=== PATIENT | female | born 1990 | race Caucasian/White ===

== ENCOUNTER 2016-12-18 09:48 | Emergency (ER) | payer OTHER ==
[~2016-12-18] VITALS: Ht 160 cm; Wt 93.4 kg
[~2016-12-18 09:48] MED LIST: ALPR1TAB2 PO; CEPH250C16 PO; CITA40TA13 PO; GABA300C PO; HYDR-4446 PO; MIRT15TA PO; TRAM50TA94 PO
[2016-12-18 10:17] VITALS: BP 122/86
--- NOTE | 2016-12-18 10:19 | NUR ---
PT TO BED 3.
--- NOTE | 2016-12-18 10:25 | NUR ---
Patient being evaluated by physician at bedside.
--- NOTE | 2016-12-18 10:33 | NUR ---
URINE NITRATE POSITIVE, UPREG NEGATIVE. DR. CASAS AWARE. NEW ORDER FOR IV AND LABS. PT MADE AWARE OF POC.
[2016-12-18] MEDS ORDERED: ONDANSETRON 4 MG ODT PO ONE (10:35)
[2016-12-18] MEDS ORDERED: MORPHINE SULFATE 4 MG/ML SYR IM ONE (10:35)
[2016-12-18] MEDS ORDERED: NACL 0.9% 1,000 ML IV SCH (10:38)
[2016-12-18] MEDS ORDERED: cefTRIAXone 1,000 MG in DEXT 5% MINI-BAG PLUS 50 ML IV ONE (10:40)
[2016-12-18] MEDS ORDERED: MORPHINE SULFATE 4 MG/ML SYR IVP ONE (10:40)
[2016-12-18] MEDS ORDERED: ONDANSETRON 4 MG/2 ML VIAL IVP ONE (10:40)
--- NOTE | 2016-12-18 10:55 | NUR ---
ZOFRAN 4MG IVP GIVEN AT 1053 TO 1055.
[2016-12-18 10:58] LABS: BASOPHILS # (AUTO) 0.2 K/uL (0.00-0.22); BASOPHILS % (AUTO) 2.1 % (0.0-2.0); EOSINOPHILS # (AUTO) 0.2 K/uL (0-0.4); EOSINOPHILS % (AUTO) 1.9 % (0.0-4.0); HEMATOCRIT 40.7 % (36-48); HEMOGLOBIN 13.4 g/dL (12.0-16.0); LYMPHOCYTES # (AUTO) 2.6 K/uL (2.5-16.5); LYMPHOCYTES % (AUTO) 32.8 % (20.5-51.1); MEAN CORPUSCULAR HEMOGLOBIN 30 pg (27-31); MEAN CORPUSCULAR HGB CONC 33 g/dL (33-37); MEAN CORPUSCULAR VOLUME 91 fL (80-94); MONOCYTES # (AUTO) 0.5 K/uL (0.8-1.0); MONOCYTES % (AUTO) 6.8 % (1.7-9.3); NEUTROPHILS # (AUTO) 4.4 K/uL (1.8-7.7); NEUTROPHILS % (AUTO) 56.4 % (42.2-75.2); PLATELET COUNT (AUTO) 292 K/uL (140-450); RED BLOOD CELL COUNT(AUTO) 4.49 MIL/uL (4.20-5.40); RED CELL DISTRIBUTION WIDTH 13.2 % (11.6-13.7)
[2016-12-18] MEDS ORDERED: cefTRIAXone 1,000 MG VIAL ONE (10:58)
--- NOTE | 2016-12-18 10:59 | NUR ---
20G IV TO RFA VIA ULTRASOUND GUIDED IV. PT ZARIA WELL. MEDS GIVEN PER OCT.
--- NOTE | 2016-12-18 11:02 | NUR ---
PT TRANSPORTED TO CT VIA W/C BY [facility].
[2016-12-18 11:04] LABS: APPEARANCE,URINE SL CLOUDY (CLEAR); BILIRUBIN,URINE NEGATIVE (NEGATIVE); BLOOD, URINE 2+ (NEGATIVE); COLOR,URINE YELLOW (YELLOW); LEUKOCYTE ESTERASE ,URINE NEGATIVE (NEGATIVE); NITRITE, URINE POSITIVE (NEGATIVE); PROTEIN,URINE NEGATIVE (NEGATIVE); UGLUCOSE NEGATIVE (NEGATIVE); UROBILINOGEN,URINE 0.2 EU/dL (0.2 - 1)
--- NOTE | 2016-12-18 11:14 | NUR ---
PT TRANSPORTED FROM [place] VIA W/C BY [facility] TO [facility].
[2016-12-18 11:33] LABS: RBC,URINE 3-10 (FEW) /HPF (0-5)
[2016-12-18 11:34] LABS: BACTERIA,URINE 2+ /HPF (None Seen); SQUAMOUS EPITHELIAL CELL,UR 4-10 (MOD) /LPF (0-3 (FEW)); WBC,URINE 0-5 (RARE) /HPF (0-5)
[2016-12-18 12:22] LABS: ANION GAP 13.2 (8-16); CALCIUM 9.3 mg/dL (8.5-10.1); CARBON DIOXIDE 27.2 mmol/L (21-32); CREATININE 0.8 mg/dL (0.6-1.3); POTASSIUM 4.4 mmol/L (3.5-5.1)
[2016-12-18 12:28] LABS: ALBUMIN 3.9 g/dL (3.4-5.0); TOTAL BILIRUBIN 0.3 mg/dL (0.0-1.0); TOTAL PROTEIN, SERUM 8.1 g/dL (6.4-8.2)
--- NOTE | 2016-12-18 12:28 | NUR ---
PT AMB TO RESTROOM WITH EVEN AND STEADY GAIT. WATER GIVEN TO PT, PO OKAY PER .
--- NOTE | 2016-12-18 12:50 | NUR ---
ORANGE SURVEY GIVEN TO PT.
[2016-12-18 12:59] VITALS: BP 125/70
--- NOTE | 2016-12-18 13:00 | NUR ---
Patient discharged with v/s stable. Written and verbal after care instructions given and explained. Patient alert, oriented and verbalized understanding of instructions. Ambulatory with steady gait. All questions addressed prior to discharge. ID band removed. Patient advised to follow up with PMD. Rx of ZOFRAN, NORCO AND BATRIM given. Patient educated on indication of medication including possible reaction and side effects. Opportunity to ask questions provided and answered.
== END 2016-12-18 13:00 | disposition home or self-care (01) ==
LOC: MED 09:48
PROC: BW21ZZZ Computerized Tomography (CT Scan) of Abdomen and Pelvis (ICD-10-PCS; principal; 2016-12-18)
PROC: 3E033GC Introduction of Other Therapeutic Substance into Peripheral Vein, Percutaneous Approach (ICD-10-PCS; 2016-12-18)
DX: N20.1 Calculus of ureter (principal); N39.0 Urinary tract infection, site not specified; Z87.442 Personal history of urinary calculi; Z32.02 Encounter for pregnancy test, result negative
CPT/HCPCS: 36415; 74176; 80053; 81001; 81025; 83690; 85025; 87086; 87186; 96361; 96365; 96375; 99285; J0696; J2270; J2405; J7030; J7060

== ENCOUNTER 2017-01-07 11:32 | Emergency (ER) | payer OTHER ==
[~2017-01-07] VITALS: Ht 160 cm; Wt 103.0 kg
[2017-01-07 11:37] VITALS: BP 120/50
[2017-01-07] MEDS ORDERED: CITA40TA13 PO (11:41)
[2017-01-07] MEDS ORDERED: CLON0.5T PO (11:41)
--- NOTE | 2017-01-07 13:31 | NUR ---
Patient ambulated to bed 5. RN evaluating patient at bedside.
--- NOTE | 2017-01-07 13:35 | NUR ---
PATIENT PRESENTS TO ED WITH C/O BILAT FLANK PAIN X4 DAYS WITH DIZZINESS; SKIN IS PINK/WARM/DRY; AAOX4 WITH EVEN AND STEADY GAIT; LUNGS CLEAR BL; HR EVEN AND REGULAR; PT DENIES ANY FEVER, CP, SOB, OR COUGH AT THIS TIME; PATIENT STATES PAIN OF 8/10 AT THIS TIME; VSS; PATIENT POSITIONED FOR COMFORT; HOB ELEVATED; BEDRAILS UP X2; BED DOWN. ER MD MADE AWARE OF PT STATUS.
[2017-01-07] MEDS ORDERED: NACL 0.9% 1,000 ML IV ONE (13:40)
[2017-01-07] MEDS ORDERED: ONDANSETRON 4 MG/2 ML VIAL IVP ONE (14:05)
--- NOTE | 2017-01-07 14:29 | NUR ---
AAO PT BEING ASSESS BY DR MOE AT BEDSIDE
[2017-01-07] MEDS ORDERED: MORPHINE SULFATE 4 MG/ML SYR IVP ONE (14:35)
[2017-01-07 15:11] VITALS: BP 125/88
--- NOTE | 2017-01-07 15:11 | NUR ---
Patient discharged with v/s stable. Written and verbal after care instructions given and explained. Patient alert, oriented and verbalized understanding of instructions. Ambulatory with steady gait. All questions addressed prior to discharge. ID band removed. Patient advised to follow up with PMD. Rx of VALIUM, IMODIUM,FLOMAX given. Patient educated on indication of medication including possible reaction and side effects. Opportunity to ask questions provided and answered.
== END 2017-01-07 15:11 | disposition home or self-care (01) ==
LOC: MED 11:32
DX: R10.9 Unspecified abdominal pain (principal); R19.7 Diarrhea, unspecified; I10 Essential (primary) hypertension; Z88.1 Allergy status to other antibiotic agents; Z87.442 Personal history of urinary calculi
CPT/HCPCS: 81002; 81025; 96361; 96374; 96375; 99284; J2270; J2405; J7030

== ENCOUNTER 2017-05-27 01:45 | Emergency (ER) | payer OTHER ==
[~2017-05-27] VITALS: Ht 160 cm; Wt 93.9 kg
[~2017-05-27 01:45] MED LIST changes: -ALPR1TAB2 PO; +BUSPAR5 MG PO; +CATAPRES0.1 MG PO; +CELEXA40 MG PO; -CEPH250C16 PO; +CIPRO250 M2 PO; -CITA40TA13 PO; +FLOMAX0.4 MG PO; -GABA300C PO; -HYDR-4446 PO; +IMITREX100 MG PO; +KEFLEX250 MG PO; +KLONOPIN0.5 MG PO; +LOMOTIL 0.025 M1 TA1 PO; -MIRT15TA PO; +NEURONTIN300 MG PO; +NORCO 5/325 MG1 TAB PO; +REMERON15 MG PO; +TENORMIN100 MG PO; -TRAM50TA94 PO; +ULTRAM50 MG PO; +XANAX1 MG PO
[2017-05-27 01:59] VITALS: BP 130/80
[2017-05-27] MEDS ORDERED: INDERAL20 MG PO (02:04)
[2017-05-27] MEDS ORDERED: KEFLEX250 MG PO (02:05)
[2017-05-27] MEDS ORDERED: NORCO 325 MG-51 TAB PO (02:06)
--- NOTE | 2017-05-27 02:08 | NUR ---
TO ER BE 3
--- NOTE | 2017-05-27 02:16 | NUR ---
PATIENT PRESENTS TO THE ED C/O ABD AND LOWER BACK PAIN. PT STATES, "I HAVE A HISTORY OF KIDNEY STONES." PT REPORTS HEMATURIA, BUT DENIES FREQUENCY AND RETENTION. PT REPORTS 10/10 BURNING RIGHT ABD PAIN THAT RADIATES TO THE BACK. PT REPORTS VOMITING, DENIES NAUSEA/DIARRHEA X1 DAY. PT AAOX4, RR EVEN/UNLABORED, SKIN IS DRY, COOL AND INTACT. ER MD DR. LAGUNAS NOTIFIED. WILL CONTINUE TO MONITOR.
[2017-05-27] MEDS ORDERED: MORPHINE SULFATE 2 MG/ML SYR IVP ONE (02:55)
[2017-05-27] MEDS ORDERED: ONDANSETRON 4 MG/2 ML VIAL IVP ONE (02:55)
[2017-05-27] MEDS ORDERED: NACL 0.9% 500 ML IV ONE ×2 (02:55→04:45)
--- NOTE | 2017-05-27 05:22 | NUR ---
IV removed, catheter intact and site benign. Applied folded 4x4 gauze and tape to stop bleeding.
--- NOTE | 2017-05-27 05:23 | NUR ---
Patient discharged with v/s stable. Written and verbal after care instructions given and explained. Patient alert, oriented and verbalized understanding of instructions. Ambulatory with steady gait. All questions addressed prior to discharge. ID band removed. Patient advised to follow up with PMD. Rx of ULTRAM 50MG AND MACROBID 100MG given. Patient educated on indication of medication including possible reaction and side effects. Opportunity to ask questions provided and answered.
[2017-05-27 05:24] VITALS: BP 128/72
== END 2017-05-27 05:26 | disposition home or self-care (01) ==
LOC: MED 01:45
DX: N39.0 Urinary tract infection, site not specified (principal); I10 Essential (primary) hypertension; Z88.1 Allergy status to other antibiotic agents; Z87.442 Personal history of urinary calculi
CPT/HCPCS: 74176; 81002; 81025; 96374; 96375; 99284; J2270; J2405; J7030

== ENCOUNTER 2017-06-07 07:30 | Emergency (ER) | payer OTHER ==
[~2017-06-07] VITALS: Ht 160 cm; Wt 91.7 kg
[~2017-06-07 07:30] MED LIST changes: +ACET-2869 PO; -BUSPAR5 MG PO; -CATAPRES0.1 MG PO; -CELEXA40 MG PO; +CEPH250C16 PO; -CIPRO250 M2 PO; +CITA40TA13 PO; +CLON0.5T PO; -FLOMAX0.4 MG PO; -IMITREX100 MG PO; +IND20 PO; -KEFLEX250 MG PO; -KLONOPIN0.5 MG PO; -LOMOTIL 0.025 M1 TA1 PO; -NEURONTIN300 MG PO; -NORCO 5/325 MG1 TAB PO; -REMERON15 MG PO; -TENORMIN100 MG PO; -ULTRAM50 MG PO; -XANAX1 MG PO
--- NOTE | 2017-06-07 07:36 | NUR ---
PT AMBULATED TO BED 6. Addendum: 06/07/17 at 0751 by MEDSS PT AMBULATED TO BED 9.
[2017-06-07 07:42] VITALS: BP 118/72
--- NOTE | 2017-06-07 07:53 | NUR ---
26/F BIB FATHER C/O LOW BACK PAIN 03/01 RADIATING TO LOW ABDOMEN, N/V/D, URINE RETENTION X2D.SKIN IS PINK/WARM/DRY; AAOX4 WITH EVEN AND STEADY GAIT; LUNGS CLEAR BL; HR EVEN AND REGULAR;PATIENT POSITIONED FOR COMFORT; HOB ELEVATED; BEDRAILS UP X2; BED DOWN. ER MD MADE AWARE OF PT STATUS.
--- NOTE | 2017-06-07 07:54 | NUR ---
ER MD DR. WHITAKER EVALUATING PT AT BEDSIDE.
--- NOTE | 2017-06-07 07:55 | NUR ---
Suzie dutton in ED - 06/07/17 at 0756 by MED1 Patient being evaluated by DR WHITAKER at bedside..
[2017-06-07] MEDS ORDERED: ONDANSETRON 4 MG ODT PO ONE (08:05)
[2017-06-07 08:12] VITALS: BP 111/66
--- NOTE | 2017-06-07 08:12 | NUR ---
Patient discharged with v/s stable. Written and verbal after care instructions given and explained. Patient alert, oriented and verbalized understanding of instructions. Ambulatory with steady gait. All questions addressed prior to discharge. ID band removed. Patient advised to follow up with PMD. Rx of ZOFRAN ODT given. Patient educated on indication of medication including possible reaction and side effects. Opportunity to ask questions provided and answered.
== END 2017-06-07 08:12 | disposition home or self-care (01) ==
LOC: MED 07:30
DX: M54.5 Low back pain (principal); I10 Essential (primary) hypertension; F41.9 Anxiety disorder, unspecified; Z87.442 Personal history of urinary calculi; Z88.1 Allergy status to other antibiotic agents; Z88.8 Allergy status to other drugs, medicaments and biological substances; Z79.899 Other long term (current) drug therapy
CPT/HCPCS: 81002; 81025; 99283; S0119

== ENCOUNTER 2017-07-18 08:23 | Emergency (ER) | payer OTHER ==
[~2017-07-18] VITALS: Ht 162.6 cm; Wt 91.7 kg
[2017-07-18 08:30] VITALS: BP 125/85
--- NOTE | 2017-07-18 08:30 | NUR ---
Patient to bed 08.
--- NOTE | 2017-07-18 09:00 | NUR ---
ASSUMED PATIENTNCARE, CONCUR WITH TRIAGE ASSESSMENT. BEDDED IN ER 8, ORIENTED TO PLAN OF CARE.
[2017-07-18] MEDS ORDERED: LORazepam 2 MG/ML VIAL IM ONE (09:10)
[2017-07-18] MEDS ORDERED: LORazepam 1 MG TAB PO ONE (09:45)
[2017-07-18 09:54] VITALS: BP 119/72
--- NOTE | 2017-07-18 09:55 | NUR ---
DISPO AND MEDICAL DECISION MAKING, DC HOME WITH INSTRUCTIONS AND PRESCRIPTION. PATIENT ENDORSING RELIEF FROM SYMPTOMS, VSWNL, NO DISTRESS. DC HOME AMBULATORY ACCOMPANIED BY SIGNIFICANT OTHER.
== END 2017-07-18 09:54 | disposition home or self-care (01) ==
LOC: MED 08:23
DX: F41.9 Anxiety disorder, unspecified (principal); R00.2 Palpitations; I10 Essential (primary) hypertension; Z79.899 Other long term (current) drug therapy; Z88.1 Allergy status to other antibiotic agents; Z88.8 Allergy status to other drugs, medicaments and biological substances
CPT/HCPCS: 81002; 81025; 99284

== ENCOUNTER 2017-09-14 08:41 | Emergency (ER) | payer OTHER ==
[~2017-09-14] VITALS: Ht 160 cm; Wt 91.2 kg
[2017-09-14 08:44] VITALS: BP 146/76
--- NOTE | 2017-09-14 08:49 | NUR ---
PT AMBULATED TO BED 12.
--- NOTE | 2017-09-14 08:50 | NUR ---
27F BIB BOYFRIEND C/O MIGRAINE HEADACHE AT R FOREHEAD AND N/V/D X 3 DAYS.HX: MIGRAINES RX: IMITREX. SKIN IS PINK/WARM/DRY; AAOX4 WITH EVEN AND STEADY GAIT; LUNGS CLEAR BL; HR EVEN AND REGULAR; PT DENIES ANY FEVER, CP, SOB, OR COUGH AT THIS TIME; PATIENT STATES PAIN OF 10/10 AT THIS TIME; VSS; PATIENT POSITIONED FOR COMFORT; HOB ELEVATED; BEDRAILS UP X2; BED DOWN. ER MD MADE AWARE OF PT STATUS.
--- NOTE | 2017-09-14 09:08 | NUR ---
Patient being evaluated by DR FULLER at bedside.
[2017-09-14] MEDS ORDERED: NACL 0.9% 1,000 ML IV ONE (09:14)
[2017-09-14] MEDS ORDERED: ONDANSETRON 4 MG/2 ML VIAL IVP ONE (09:15)
[2017-09-14] MEDS ORDERED: diphenhydrAMINE 50 MG/ML VIAL IVP ONE (09:15)
[2017-09-14] MEDS ORDERED: MORPHINE SULFATE 4 MG/ML SYR IVP ONE (09:15)
[2017-09-14] MEDS ORDERED: MORPHINE SULFATE 4 MG/ML SYR ONE (09:30)
[2017-09-14] MEDS ORDERED: ONDANSETRON 4 MG/2 ML VIAL ONE (09:31)
[2017-09-14] MEDS ORDERED: diphenhydrAMINE 50 MG/ML VIAL ONE (09:32)
[2017-09-14 09:59] LABS: APPEARANCE,URINE CLEAR (CLEAR); BILIRUBIN,URINE NEGATIVE (NEGATIVE); BLOOD, URINE 1+ (NEGATIVE); COLOR,URINE YELLOW (YELLOW); LEUKOCYTE ESTERASE ,URINE TRACE (NEGATIVE); NITRITE, URINE NEGATIVE (NEGATIVE); UGLUCOSE NEGATIVE (NEGATIVE)
[2017-09-14 10:27] LABS: POTASSIUM 4.3 mmol/L (3.5-5.1)
[2017-09-14 10:35] LABS: RBC,URINE 0-5 (RARE) /HPF (0-5); WBC,URINE 0-5 (RARE) /HPF (0-5)
[2017-09-14 10:39] LABS: ANION GAP 15.9 (8-16); CARBON DIOXIDE 27.4 mmol/L (21-32); CREATININE 0.8 mg/dL (0.6-1.3)
[2017-09-14] MEDS ORDERED: DEXAMETHASONE 10 MG/ML VIAL PO ONE (10:45)
[2017-09-14] MEDS ORDERED: DEXAMETHASONE 10 MG/ML VIAL ONE (10:48)
--- NOTE | 2017-09-14 11:04 | NUR ---
Patient discharged with v/s stable. Written and verbal after care instructions given and explained. Patient alert, oriented and verbalized understanding of instructions. Ambulatory with steady gait. All questions addressed prior to discharge. ID band removed. Patient advised to follow up with PMD. Rx of ZOFRAN, NORCO & KEFLEX given. Patient educated on indication of medication including possible reaction and side effects. Opportunity to ask questions provided and answered.
[2017-09-14 11:05] VITALS: BP 111/85
== END 2017-09-14 11:04 | disposition home or self-care (01) ==
LOC: MED 08:41
DX: N39.0 Urinary tract infection, site not specified (principal); R51 Headache; I10 Essential (primary) hypertension; Z87.442 Personal history of urinary calculi; Z88.1 Allergy status to other antibiotic agents; Z88.8 Allergy status to other drugs, medicaments and biological substances; Z79.899 Other long term (current) drug therapy
CPT/HCPCS: 36415; 80048; 81001; 81025; 96361; 96374; 96375; 99284; J1100; J1200; J2270; J2405

== ENCOUNTER 2018-06-30 16:17 | Emergency (ER) | payer OTHER ==
[~2018-06-30] VITALS: Ht 160 cm; Wt 87.1 kg
[~2018-06-30 16:17] MED LIST changes: -ACET-2869 PO; +HYDR-5122 PO; -IND20 PO; +PROP20TA29 PO
[2018-06-30 16:28] VITALS: BP 125/72
--- NOTE | 2018-06-30 16:33 | NUR ---
PT TRIAGED AND SENT TO ER LOBBY. EDMD AWARE OF PT STATUS
--- NOTE | 2018-06-30 17:43 | NUR ---
PT REASSESSED AND STATES THAT SHE IS HAVING AN ANXIETY ATTACK, VSS, EDMD AWARE. PT SENT TO LOBBY.
[2018-06-30 18:18] LABS: ANION GAP 14.2 (8-16); CARBON DIOXIDE 25.5 mmol/L (21-32); CREATININE 0.9 mg/dL (0.6-1.3); POTASSIUM 3.7 mmol/L (3.5-5.1)
[2018-06-30 18:28] LABS: ALBUMIN 4.6 g/dL (3.4-5.0); TOTAL BILIRUBIN 0.3 mg/dL (0.0-1.0)
[2018-06-30 18:34] LABS: APPEARANCE,URINE CLEAR (CLEAR); COLOR,URINE YELLOW (YELLOW)
[2018-06-30 18:35] LABS: BILIRUBIN,URINE NEGATIVE (NEGATIVE); BLOOD, URINE 2+ (NEGATIVE); LEUKOCYTE ESTERASE ,URINE NEGATIVE (NEGATIVE); NITRITE, URINE NEGATIVE (NEGATIVE); UGLUCOSE NEGATIVE (NEGATIVE)
[2018-06-30 18:40] LABS: BASOPHILS % (AUTO) 0.3 % (0.0-2.0); EOSINOPHILS % (AUTO) 0.4 % (0.0-4.0); HEMATOCRIT 44.9 % (36-48); HEMOGLOBIN 14.9 g/dL (12.0-16.0); LYMPHOCYTES % (AUTO) 30.4 % (20.5-51.1); MEAN CORPUSCULAR HEMOGLOBIN 33 pg (27-31); MEAN CORPUSCULAR HGB CONC 33 g/dL (33-37); MONOCYTES # (AUTO) 0.7 K/uL (0.8-1.0); MONOCYTES % (AUTO) 6.6 % (1.7-9.3); NEUTROPHILS # (AUTO) 6.2 K/uL (1.8-7.7); NEUTROPHILS % (AUTO) 62.3 % (42.2-75.2); PLATELET COUNT (AUTO) 264 K/uL (140-450); RED BLOOD CELL COUNT(AUTO) 4.58 MIL/uL (4.20-5.40); RED CELL DISTRIBUTION WIDTH 13.1 % (11.6-13.7)
[2018-06-30 18:59] LABS: RBC,URINE 0-5 (RARE) /HPF (0-5)
[2018-06-30 19:00] LABS: WBC,URINE 0-5 (RARE) /HPF (0-5)
--- NOTE | 2018-06-30 19:35 | NUR ---
Reassessed. No changes or new complaints noted.
--- NOTE | 2018-06-30 19:58 | NUR ---
PT AMBULATED TO BED 8
--- NOTE | 2018-06-30 19:58 | NUR ---
PT PRESENTS TO ED WITH N/V, LOWER RIGHT BACK PAIN AND SUPRAPUBIC TENDERNESS X1 WK. PT STATES UNABLE TO KEEP FOOD/FLUID DOWN X3 DAYS. PAIN WITH URINATION. PT STATES ANXIETY D/T STRESS AT HOME WITH FAMILY. PT STATES DX OF KIDNEY STONES, DX'D AT [facility]. PT TACHY AT 103. A&OX4. POSITIONED IN BED FOR COMFORT. ER AWARE. CONTINUE TO MONITOR.
[2018-06-30] MEDS ORDERED: LORazepam 2 MG/ML VIAL IM ONE (20:35)
[2018-06-30] MEDS ORDERED: ONDANSETRON 4 MG ODT PO ONE (20:35)
[2018-06-30] MEDS ORDERED: HYDROcodone/APAP 5/325 MG 1 TAB TAB PO ONE (20:35)
--- NOTE | 2018-06-30 21:23 | NUR ---
Patient discharged with v/s stable. Written and verbal after care instructions given and explained. Patient alert, oriented and verbalized understanding of instructions. Ambulatory with steady gait. All questions addressed prior to discharge. ID band removed. Patient advised to follow up with PMD. Rx of ZOFRAN 4 MG, NORCO 5/325 MG given. Patient educated on indication of medication including possible reaction and side effects. Opportunity to ask questions provided and answered.
[2018-06-30 21:24] VITALS: BP 148/90
== END 2018-06-30 21:23 | disposition home or self-care (01) ==
LOC: MED 16:17
DX: N20.0 Calculus of kidney (principal); F41.9 Anxiety disorder, unspecified; I10 Essential (primary) hypertension; Z88.1 Allergy status to other antibiotic agents; Z88.8 Allergy status to other drugs, medicaments and biological substances; Z87.442 Personal history of urinary calculi; Z79.899 Other long term (current) drug therapy
CPT/HCPCS: 36415; 80053; 81001; 81025; 83690; 85025; 96372; 99284; J2060; Q0162

== ENCOUNTER 2018-09-20 17:31 | Emergency (ER) | payer OTHER ==
[~2018-09-20] VITALS: Ht 157.5 cm; Wt 86.2 kg
[2018-09-20 17:42] VITALS: BP 134/76
--- NOTE | 2018-09-20 17:48 | NUR ---
28/F c/o persistant right frontal lobe pain x 3 days with nausea/emesis---denies recent injury hx---migraine, anxiety rx---imitrex, norco, xanax
[2018-09-20] MEDS ORDERED: NACL 0.9% 1,000 ML IV ONE (18:15)
[2018-09-20] MEDS ORDERED: MORPHINE SULFATE 4 MG/ML SYR IVP ONE (18:15)
[2018-09-20] MEDS ORDERED: METOCLOPRAMIDE 10 MG/2 ML INJ VIAL IVP ONE (18:15)
[2018-09-20 18:54] VITALS: BP 135/83
--- NOTE | 2018-09-20 18:54 | NUR ---
Patient discharged with v/s stable. Written and verbal after care instructions given and explained. Patient alert, oriented and verbalized understanding of instructions. Ambulatory with steady gait. All questions addressed prior to discharge. ID band removed. Patient advised to follow up with PMD. Rx of Zofran given. Patient educated on indication of medication including possible reaction and side effects. Opportunity to ask questions provided and answered. Addendum: 09/20/18 at 1856 by PARVEEN Pt wants to leave d/t her daughter being admitted at [place] for seizure. Dr Kristie suarez.
== END 2018-09-20 18:54 | disposition home or self-care (01) ==
LOC: MED 17:31
DX: G43.909 Migraine, unspecified, not intractable, without status migrainosus (principal); I10 Essential (primary) hypertension; F41.9 Anxiety disorder, unspecified; Z87.442 Personal history of urinary calculi; Z79.899 Other long term (current) drug therapy; Z88.1 Allergy status to other antibiotic agents; Z88.8 Allergy status to other drugs, medicaments and biological substances
CPT/HCPCS: 81002; 81025; 96374; 96375; 99283; J2270; J2765; J7030

== ENCOUNTER 2018-12-13 05:40 | Emergency (ER) | payer OTHER ==
[~2018-12-13] VITALS: Ht 160 cm; Wt 83.5 kg
[2018-12-13 05:45] VITALS: BP 124/78
--- NOTE | 2018-12-13 05:45 | NUR ---
TO BED #07 AMBULATORY, REPORT GIVEN TO KASIE PADGETT
--- NOTE | 2018-12-13 05:48 | NUR ---
PT AXOX3. PT STATES ALLERGY TO TORADOL AND CIPRO- REACTION: HIVES. CURRENTLY C/O MIGRAINE PAIN 10/ SURROUNDING RIGHT ORBIT WITH SENSITIVITY TO LIGHT. PT STATES SHE TAKES TRAMADOL, IMITREX, NORCO AND PHENOBARBITAL FOR MIGRAINES PRESCRIBED BY HER PCP. WILL CONTINUE TO MONITOR CLOSELY.
[2018-12-13] MEDS ORDERED: diphenhydrAMINE 50 MG/ML VIAL IM ONE (06:00)
[2018-12-13] MEDS ORDERED: MORPHINE SULFATE 2 MG/ML SYR IM ONE (06:00)
[2018-12-13] MEDS ORDERED: PROCHLORPERAZINE 10 MG/2 ML VIAL IM ONE (06:00)
[2018-12-13] MEDS ORDERED: NACL 0.9% 1,000 ML IV ONE (06:20)
[2018-12-13] MEDS ORDERED: MORPHINE SULFATE 2 MG/ML SYR IVP ONE (06:25)
[2018-12-13] MEDS ORDERED: PROCHLORPERAZINE 10 MG/2 ML VIAL IVP ONE (06:25)
[2018-12-13] MEDS ORDERED: diphenhydrAMINE 50 MG/ML VIAL IVP ONE (06:25)
[2018-12-13] MEDS ORDERED: SULFAMETH/TRIMETH DS 800/160MG 1 TAB PO ONE (06:30)
--- NOTE | 2018-12-13 06:48 | NUR ---
D/C PATIENT AXOX4 AND AMBULATORY WITH SIGNIFICANT OTHER AT BEDSIDE. PATIENT STATES PAIN 2/10 MIGRAINE. HOME CARE AND DISCHARGE ORDERS REVIEWED WITH THE PATIENT, STATES UNDERSTANDING OF ALL ORDERS AND MEDICATIONS ORDERED. NO QUESTIONS AT THIS TIME.
== END 2018-12-13 06:48 | disposition home or self-care (01) ==
LOC: MED 05:40
DX: G43.909 Migraine, unspecified, not intractable, without status migrainosus (principal); N39.0 Urinary tract infection, site not specified; I10 Essential (primary) hypertension; Z88.1 Allergy status to other antibiotic agents; Z88.6 Allergy status to analgesic agent; Z79.2 Long term (current) use of antibiotics; Z79.891 Long term (current) use of opiate analgesic; Z79.899 Other long term (current) drug therapy
CPT/HCPCS: 81002; 96374; 96375; 99283; J0780; J1200; J2270; J7030

== ENCOUNTER 2020-04-12 10:42 | Emergency (ER) | payer OTHER ==
[~2020-04-12] VITALS: Ht 160 cm; Wt 96.6 kg
[2020-04-12 10:48] VITALS: BP 125/70
[2020-04-12 11:41] LABS: BASOPHILS # (AUTO) 0.1 K/uL (0.00-0.22); BASOPHILS % (AUTO) 0.6 % (0.0-2.0); EOSINOPHILS % (AUTO) 0.5 % (0.0-4.0); HEMATOCRIT 41.6 % (36-48); LYMPHOCYTES # (AUTO) 2.5 K/uL (2.5-16.5); LYMPHOCYTES % (AUTO) 26.3 % (20.5-51.1); MEAN CORPUSCULAR HEMOGLOBIN 33 pg (27-31); MEAN CORPUSCULAR HGB CONC 34 g/dL (33-37); MEAN CORPUSCULAR VOLUME 97.2 fL (80-94); MONOCYTES # (AUTO) 0.7 K/uL (0.8-1.0); MONOCYTES % (AUTO) 6.8 % (1.7-9.3); NEUTROPHILS # (AUTO) 6.3 K/uL (1.8-7.7); NEUTROPHILS % (AUTO) 65.8 % (42.2-75.2); PLATELET COUNT (AUTO) 336 K/uL (140-450); RED BLOOD CELL COUNT(AUTO) 4.28 MIL/uL (4.20-5.40); RED CELL DISTRIBUTION WIDTH 13.7 % (11.6-13.7); WHITE BLOOD COUNT (AUTO) 9.5 K/uL (4.8-10.8)
[2020-04-12 12:03] LABS: ALBUMIN 3.7 g/dL (3.4-5.0); ANION GAP 16.9 (8-16); CREATININE 0.6 mg/dL (0.6-1.3); POTASSIUM 3.9 mmol/L (3.5-5.1); TOTAL BILIRUBIN 0.4 mg/dL (0.0-1.0)
[2020-04-12 13:56] VITALS: BP 125/70
== END 2020-04-12 13:57 | disposition home or self-care (01) ==
LOC: MED 10:42
DX: O20.0 Threatened abortion (principal); I10 Essential (primary) hypertension; F41.9 Anxiety disorder, unspecified; N20.0 Calculus of kidney; Z3A.09 9 weeks gestation of pregnancy
CPT/HCPCS: 36415; 76801; 80053; 81002; 81025; 84702; 85025; 86886; 86900; 86901; 99284; Q0092

== ENCOUNTER 2021-03-06 10:54 | Emergency (ER) | payer OTHER ==
[~2021-03-06] VITALS: Ht 154.9 cm; Wt 106.6 kg
[2021-03-06 11:13] VITALS: BP 165/105
[2021-03-06] MEDS ORDERED: LORazepam 2 MG/ML VIAL IVP ONE (11:15)
--- NOTE | 2021-03-06 11:15 | NUR ---
30 YEAR OLD FEMALE BIBA FROM HOME FOR COMPLAINS OF CHEST PALPITATIONS. PT STATES SHE HAS BEEN HAVING ANXIETY WITH PALPITATIONS X 3 DAYS. PT STATES SHE ALSO HAS NAUSEA, VOMITTING PRESENT. PT AOX4, BREATHING EVEN AND UNLABORED, SKIN WARM AND DRY. BED IN LOWEST POSITION, LOCKED, BED RAIL UPX1. PMH - ANXIETY, C SECTION ALLERGIES - CIPRO
--- NOTE | 2021-03-06 12:05 | NUR ---
Several attempts to establish IV unsuccessful. Dr. Bello made aware. TU Puga at bedside to attempt US guided IV insertion. Pt made aware and verbally agreed.
--- NOTE | 2021-03-06 12:11 | NUR ---
UNABLE TO OBTAIN IV ACCESS AFTER MULTIPLE ATTEMPTS BY NURSING STAFF, TU MARTINEZ MADE AWARE AND IS AT BEDSIDE FOR IV ULTRASOUND
--- NOTE | 2021-03-06 12:19 | NUR ---
REPORT GIVEN TO ALAINA AT THIS TIME FOR PRIMARY NURSE TO TAKE LUNCH
[2021-03-06] MEDS: ONDANSETRON 4 MG/2 ML VIAL IVP ONE (12:40)
[2021-03-06] MEDS: NACL 0.9% 500 ML IV ONE (12:40)
[2021-03-06] MEDS: LORazepam 2 MG/ML VIAL IVP ONE (12:42)
--- NOTE | 2021-03-06 12:48 | NUR ---
PT COMPLAINS OF FEELING LIKE "MY HEART IS RACING AND I FEEL LIKE SOMEONE IS SITTING ON MY CHEST." DR. EDWARDS MADE AWARE, NO NEW ORDERS RECEIVED AT THIS TIME.
--- NOTE | 2021-03-06 12:49 | NUR ---
Pt report given to Mando. Transfer of care at this time.
--- NOTE | 2021-03-06 12:56 | NUR ---
PT STATES SHE WANTS MORE ATIVAN, PROMISE MADE AWARE AND IS TALKING TO PT AT THIS TIME
[2021-03-06 12:59] LABS: BASOPHILS % (AUTO) 0.1 % (0.0-2.0); HEMATOCRIT 42.6 % (36-48); HEMOGLOBIN 14.3 g/dL (12.0-16.0); LYMPHOCYTES # (AUTO) 2.1 K/uL (2.5-16.5); LYMPHOCYTES % (AUTO) 22.7 % (20.5-51.1); MEAN CORPUSCULAR HEMOGLOBIN 31 pg (27-31); MEAN CORPUSCULAR HGB CONC 34 g/dL (33-37); MEAN CORPUSCULAR VOLUME 92.4 fL (80-94); MONOCYTES # (AUTO) 0.4 K/uL (0.8-1.0); MONOCYTES % (AUTO) 4.9 % (1.7-9.3); NEUTROPHILS # (AUTO) 6.6 K/uL (1.8-7.7); NEUTROPHILS % (AUTO) 72.3 % (42.2-75.2); PLATELET COUNT (AUTO) 318 K/uL (140-450); RED BLOOD CELL COUNT(AUTO) 4.61 MIL/uL (4.20-5.40); RED CELL DISTRIBUTION WIDTH 14.4 % (11.6-13.7); WHITE BLOOD COUNT (AUTO) 9.1 K/uL (4.8-10.8)
--- NOTE | 2021-03-06 13:00 | NUR ---
IV removed, catheter intact and site benign. Applied folded 4x4 gauze and tape to stop bleeding.
[2021-03-06 13:01] VITALS: BP 165/105
--- NOTE | 2021-03-06 13:02 | NUR ---
PT ELOPED FROM FACILITY AT THIS TIME. ERMD MADE AWARE
[2021-03-06 13:10] LABS: ANION GAP 15.4 (8-16); CARBON DIOXIDE 26.7 mmol/L (21-32); CREATININE 0.8 mg/dL (0.6-1.3); POTASSIUM 4.1 mmol/L (3.5-5.1)
== END 2021-03-06 13:02 | disposition left against medical advice (07) ==
LOC: MED 10:54
DX: F41.9 Anxiety disorder, unspecified (principal); I10 Essential (primary) hypertension; Z87.442 Personal history of urinary calculi; Z88.1 Allergy status to other antibiotic agents; Z88.8 Allergy status to other drugs, medicaments and biological substances; Z79.899 Other long term (current) drug therapy; Z76.5 Malingerer [conscious simulation]
CPT/HCPCS: 36415; 36569; 80048; 81002; 81025; 83735; 85025; 93005; 96374; 96375; 99285; J2060; J2405; J7030; 36568

== ENCOUNTER 2021-03-12 15:14 | Emergency (ER) | payer OTHER ==
[~2021-03-12] VITALS: Ht 157.5 cm; Wt 97.5 kg
[2021-03-12 15:21] VITALS: BP 132/99
--- NOTE | 2021-03-12 15:52 | NUR ---
TU MORALEZ EVALUATING PT IN TRIAGE ROOM
[2021-03-12] MEDS ORDERED: LORazepam 2 MG/ML VIAL IM ONE (16:00)
[2021-03-12] MEDS ORDERED: CLON0.5T PO (16:03)
[2021-03-12 16:19] VITALS: BP_SYST 132
--- NOTE | 2021-03-12 16:19 | NUR ---
Patient discharged with v/s stable. Written and verbal after care instructions given and explained. Patient alert, oriented and verbalized understanding of instructions. Ambulatory with steady gait. All questions addressed prior to discharge. ID band removed. Patient advised to follow up with PMD. Rx of Klonopin given. Patient educated on indication of medication including possible reaction and side effects. Opportunity to ask questions provided and answered.
== END 2021-03-12 16:19 | disposition home or self-care (01) ==
LOC: MED 15:14
DX: F41.9 Anxiety disorder, unspecified (principal); R00.2 Palpitations; I10 Essential (primary) hypertension; Z79.899 Other long term (current) drug therapy; Z88.1 Allergy status to other antibiotic agents; Z88.8 Allergy status to other drugs, medicaments and biological substances; Z87.442 Personal history of urinary calculi
CPT/HCPCS: 93005; 96372; 99283; J2060

== ENCOUNTER 2021-06-17 17:05 | Emergency (ER) | payer OTHER ==
[~2021-06-17] VITALS: Ht 160 cm; Wt 88.5 kg
[2021-06-17 17:26] VITALS: BP 140/98
--- NOTE | 2021-06-17 17:39 | NUR ---
TO ER BED 8
--- NOTE | 2021-06-17 17:56 | NUR ---
PT HAS REQUESTED NO NARCOTICS GIVEN OR PRESCRIBED TO HER DUE TO HER LIVING SITUATION
--- NOTE | 2021-06-17 17:56 | NUR ---
30 Y FEMALE WITH C/O OF RASH ON HER FACE, CHEST, AND BILATERAL ARMS XTODAY. PT ALSO STATED SHE HAS SWELLING ON HER EYELIDS AND SOB. PT WAS SEEN AT [facility] YESTERDAY AND WAS DX WITH BRONCHITIS. PT WAS GIVEN PREDNISONE AND INHALER FOR HOME USE, BUT STATED "AFTER THE STEROIDS SHE STARTED TO DEVELOP THE RASH AND SOB." BREATH SOUNDS CLEAR, BUT SHALLOW UPON ASSESSMENT. REDNESS NOTED OVER PT FACE, UPPER CHEST, AND BILATERAL ARMS. SKIN IS DRY AND INTACT, PT A&OX4, AND AMBULATORY PMH: BRONCHITIS ALLERGIES: SEE LIST
--- NOTE | 2021-06-17 18:32 | NUR ---
DR. MOE BEDSIDE EVALUATING PT
[2021-06-17] MEDS ORDERED: BEN50 PO (18:39)
[2021-06-17] MEDS ORDERED: diphenhydrAMINE 50 MG CAP PO ONE (18:55)
[2021-06-17 19:10] VITALS: BP 144/99
--- NOTE | 2021-06-17 19:11 | NUR ---
Patient discharged with v/s stable. Written and verbal after care instructions given and explained. Patient alert, oriented and verbalized understanding of instructions. Ambulatory with steady gait. All questions addressed prior to discharge. ID band removed. Patient advised to follow up with PMD. Rx of BENADRYL given. Patient educated on indication of medication including possible reaction and side effects. Opportunity to ask questions provided and answered.
== END 2021-06-17 19:11 | disposition home or self-care (01) ==
LOC: MED 17:05
DX: T78.40XA Allergy, unspecified, initial encounter (principal); R21 Rash and other nonspecific skin eruption; Z88.1 Allergy status to other antibiotic agents; Z88.8 Allergy status to other drugs, medicaments and biological substances; Z79.899 Other long term (current) drug therapy; Z98.890 Other specified postprocedural states; X58.XXXA Exposure to other specified factors, initial encounter; Y93.89 Activity, other specified; Y92.89 Other specified places as the place of occurrence of the external cause; Y99.8 Other external cause status
CPT/HCPCS: 99282; Q0163

== ENCOUNTER 2021-06-26 12:16 | Emergency (ER) | payer OTHER ==
[~2021-06-26] VITALS: Ht 160 cm; Wt 88.5 kg
[~2021-06-26 12:16] MED LIST changes: +BEN50 PO
[2021-06-26 12:28] VITALS: BP 151/125
--- NOTE | 2021-06-26 12:44 | NUR ---
PT AMB TO BED 2.
--- NOTE | 2021-06-26 13:00 | NUR ---
30 Y/O FEMALE C/O LOWER BACK PAIN 8/10 AND BILATERAL FLANK PAIN, HEADACHE 5/10 X 3 DAYS AND RIGHT EYE BLURRY X1DAY. STATES +DYSURIA, DENIES DISCHARGE, DENIES ITCHING. PT STATES SHE STOPPED TKAING ATENOLOL FOR HTN X2 MONTHS. DENIES FEVER/CHILLS. STATES +N/-V. BLOOD SUGAR 103 AT THIS TIME. VA: RIGHT EYE 20/100, LEFT EYE 20/50, 20/40 PMH: HTN, DM, ASTHMA ALLERGIES: CIPRO, TORADOL, AND NSAIDS.
--- NOTE | 2021-06-26 13:22 | NUR ---
DR. KEANE AT PT BEDSIDE FOR FURTHER EVALUATION.
[2021-06-26] MEDS ORDERED: NAPR-1704 PO (13:36)
[2021-06-26] MEDS ORDERED: SULF-59 PO (13:36)
[2021-06-26] MEDS ORDERED: IBUPROFEN 400 MG TAB PO ONE (13:40)
[2021-06-26] MEDS ORDERED: IBUPROFEN 400 MG TAB ONE (13:41)
[2021-06-26] MEDS ORDERED: ATEN25TA7 PO (13:46)
[2021-06-26] MEDS ORDERED: IMI25 PO (13:46)
[2021-06-26 13:57] VITALS: BP 139/92
--- NOTE | 2021-06-26 13:58 | NUR ---
Patient discharged with v/s stable. Written and verbal after care instructions given and explained. Patient alert, oriented and verbalized understanding of instructions. Ambulatory with steady gait. All questions addressed prior to discharge. ID band removed. Patient advised to follow up with PMD. Rx of ATENOLO, IMITREX, NAPROXEN, AND BACTRIM given. Patient educated on indication of medication including possible reaction and side effects. Opportunity to ask questions provided and answered.
[2021-06-26 15:30] LABS: APPEARANCE,URINE CLEAR (CLEAR); BILIRUBIN,URINE NEGATIVE (NEGATIVE); BLOOD, URINE TRACE-I (NEGATIVE); COLOR,URINE YELLOW (YELLOW); LEUKOCYTE ESTERASE ,URINE NEGATIVE (NEGATIVE); NITRITE, URINE NEGATIVE (NEGATIVE); UGLUCOSE NEGATIVE (NEGATIVE)
[2021-06-26 15:40] LABS: RBC,URINE 0-5 /HPF (0-5); WBC,URINE 0-5 /HPF (0-5)
== END 2021-06-26 13:57 | disposition home or self-care (01) ==
LOC: MED 12:16
DX: N39.0 Urinary tract infection, site not specified (principal); N12 Tubulo-interstitial nephritis, not specified as acute or chronic; I10 Essential (primary) hypertension; G43.909 Migraine, unspecified, not intractable, without status migrainosus; J45.909 Unspecified asthma, uncomplicated; Z88.1 Allergy status to other antibiotic agents; Z88.8 Allergy status to other drugs, medicaments and biological substances; Z79.899 Other long term (current) drug therapy
CPT/HCPCS: 81001; 81002; 81025; 87086; 99283

== ENCOUNTER 2021-08-30 09:27 | Emergency (ER) | payer OTHER ==
[~2021-08-30] VITALS: Ht 160 cm; Wt 83.9 kg
[~2021-08-30 09:27] MED LIST changes: +ATEN25TA7 PO; +IMI25 PO; +NAPR-1704 PO; +SULF-59 PO
[2021-08-30 09:45] VITALS: BP 150/85
--- NOTE | 2021-08-30 09:45 | NUR ---
COVID PCR SWAB DONE., TENT 2.
--- NOTE | 2021-08-30 09:46 | NUR ---
BIB SELF C/O COUGH X 2 WEEKS , 6/10 CHEST TIGHTNESS, SORE THROAT,DIFFICULTY BREATHING, STUFFY NOSE X 3 DAY. PT TOOK IBUPROFEN FOR BODY ACHE AT 7 AM. PMH: ASTHMA
[2021-08-30] MEDS ORDERED: ALBU0.0912 IH (11:49)
[2021-08-30] MEDS ORDERED: AZIT250T3 PO (11:49)
[2021-08-30] MEDS ORDERED: PRED20TA5 PO ×2 (11:49→12:46)
[2021-08-30 12:20] VITALS: BP 136/78
--- NOTE | 2021-08-30 12:21 | NUR ---
Patient discharged with v/s stable. Written and verbal after care instructions given COUGH and explained. Patient alert, oriented and verbalized understanding of instructions. Ambulatory with steady gait. All questions addressed prior to discharge. ID band removed. Patient advised to follow up with PMD. Rx of ALBUTEROL, AZITHROMYCIN, AND PREDNISONE given. Patient educated on indication of medication including possible reaction and side effects. Opportunity to ask questions provided and answered.
== END 2021-08-30 12:20 | disposition home or self-care (01) ==
LOC: MED 09:27
DX: J40 Bronchitis, not specified as acute or chronic (principal); J45.909 Unspecified asthma, uncomplicated; E11.9 Type 2 diabetes mellitus without complications; I10 Essential (primary) hypertension; Z88.1 Allergy status to other antibiotic agents; Z88.6 Allergy status to analgesic agent; Z20.822 Contact with and (suspected) exposure to COVID-19
CPT/HCPCS: 71045; 99284; Q0092; U0003

== ENCOUNTER 2021-09-26 18:44 | Emergency (ER) | payer SELFPAY ==
[~2021-09-26] VITALS: Ht 160 cm; Wt 83.9 kg
[~2021-09-26 18:44] MED LIST changes: +ALBU0.0912 IH; +AZIT250T3 PO; +PRED20TA5 PO
[2021-09-26 18:48] VITALS: BP 126/79
--- NOTE | 2021-09-26 19:08 | NUR ---
31/F BIB SELF WITH C/O DYSURIA AND HEMATURIA X 1 WEEK, BILATERAL FLANK PAIN X 2 DAYS. PT ALSO COMPLAINS OF CHILLS, NAUSEA AND VOMITING TODAY. DENIES FEVER. PT TOOK IBUPROFEN 600MG 2 HOURS AGO. STATES HX OF KIDNEY STONES AND STATES THIS FEELS SIMILAR. DENIES FEVERS, CHILLS. IN ER, VSS. NO ACTIVE VOMITING NOTED. ABDOMEN SOFT, NONTENDER. ERMD MADE AWARE OF PT STATUS. MEDHX: HX OF KIDNEY STONES, HTN, GESTATIONAL DM, BRONCHIAL ASTHMA MEDs: ALBUTEROL PRN, ATENOLOL ALLERGIES: CIPRO, TORADOL, NSAIDS
[2021-09-26] MEDS ORDERED: CEPH-588 PO (19:18)
--- NOTE | 2021-09-26 19:24 | NUR ---
REPORT GIVEN TO DAYRON ROBBINS. ALL CARE TRANSFERRED AT THIS TIME.
[2021-09-26 19:30] VITALS: BP 126/79
== END 2021-09-26 19:30 | disposition home or self-care (01) ==
LOC: MED 18:44
DX: R10.9 Unspecified abdominal pain (principal); R30.0 Dysuria; J45.909 Unspecified asthma, uncomplicated; E11.9 Type 2 diabetes mellitus without complications; I10 Essential (primary) hypertension; Z98.890 Other specified postprocedural states; Z79.899 Other long term (current) drug therapy; Z88.1 Allergy status to other antibiotic agents; Z88.8 Allergy status to other drugs, medicaments and biological substances
CPT/HCPCS: 81002; 81025; 99283

== ENCOUNTER 2021-10-04 17:11 | Emergency (ER) | payer SELFPAY ==
[~2021-10-04] VITALS: Ht 160 cm; Wt 83.5 kg
[~2021-10-04 17:11] MED LIST changes: +CEPH-588 PO
[2021-10-04 17:16] VITALS: BP 144/87
--- NOTE | 2021-10-04 17:39 | NUR ---
pt states she forgot to mention during assessment that her pcp saw signs of cervical cancer cells and positive hpv during pap smear exam.
[2021-10-04 19:07] LABS: BASOPHILS % (AUTO) 0.3 % (0.0-2.0); EOSINOPHILS % (AUTO) 0.4 % (0.0-4.0); HEMATOCRIT 42.4 % (36-48); HEMOGLOBIN 14.6 g/dL (12.0-16.0); LYMPHOCYTES # (AUTO) 2.4 K/uL (2.5-16.5); LYMPHOCYTES % (AUTO) 23.3 % (20.5-51.1); MEAN CORPUSCULAR HEMOGLOBIN 33 pg (27-31); MEAN CORPUSCULAR HGB CONC 35 g/dL (33-37); MEAN CORPUSCULAR VOLUME 95.6 fL (80-94); MONOCYTES # (AUTO) 0.7 K/uL (0.8-1.0); MONOCYTES % (AUTO) 6.6 % (1.7-9.3); NEUTROPHILS % (AUTO) 69.4 % (42.2-75.2); PLATELET COUNT (AUTO) 322 K/uL (140-450); RED BLOOD CELL COUNT(AUTO) 4.43 MIL/uL (4.20-5.40); RED CELL DISTRIBUTION WIDTH 14.4 % (11.6-13.7); WHITE BLOOD COUNT (AUTO) 10.1 K/uL (4.8-10.8)
[2021-10-04 19:30] LABS: ALBUMIN 4.3 g/dL (3.4-5.0); ANION GAP 12.9 (8-16); CARBON DIOXIDE 27.9 mmol/L (21-32); CREATININE 0.6 mg/dL (0.6-1.3); POTASSIUM 3.8 mmol/L (3.5-5.1); TOTAL BILIRUBIN 0.4 mg/dL (0.0-1.0)
[2021-10-04 19:30] LABS: APPEARANCE,URINE CLEAR (CLEAR); BILIRUBIN,URINE NEGATIVE (NEGATIVE); BLOOD, URINE 2+ (NEGATIVE); COLOR,URINE YELLOW (YELLOW); LEUKOCYTE ESTERASE ,URINE NEGATIVE (NEGATIVE); NITRITE, URINE NEGATIVE (NEGATIVE); PH,URINE 6.5 (5.0-9.0); UGLUCOSE NEGATIVE (NEGATIVE)
[2021-10-04 19:56] LABS: RBC,URINE 0-5 /HPF (0-5); WBC,URINE NONE SEEN /HPF (0-5)
[2021-10-04] MEDS ORDERED: ACET-2619 PO (20:13)
[2021-10-04] MEDS ORDERED: HYOS-60 SL (20:13)
[2021-10-04 20:40] VITALS: BP 144/87
--- NOTE | 2021-10-04 20:40 | NUR ---
Patient discharged with v/s stable. Written and verbal after care instructions given and explained. Patient alert, oriented and verbalized understanding of instructions. Ambulatory with steady gait. All questions addressed prior to discharge. ID band removed. Patient advised to follow up with PMD. Rx of tylenol and levsin given. Patient educated on indication of medication including possible reaction and side effects. Opportunity to ask questions provided and answered.
== END 2021-10-04 20:40 | disposition home or self-care (01) ==
LOC: MED 17:11
DX: N23 Unspecified renal colic (principal); R31.9 Hematuria, unspecified; J45.909 Unspecified asthma, uncomplicated; E11.9 Type 2 diabetes mellitus without complications; I10 Essential (primary) hypertension; Z98.890 Other specified postprocedural states; Z88.1 Allergy status to other antibiotic agents; Z88.8 Allergy status to other drugs, medicaments and biological substances; Z79.899 Other long term (current) drug therapy
CPT/HCPCS: 36415; 76770; 80053; 81001; 81025; 83690; 85025; 87086; 99284; Q0092

== ENCOUNTER 2021-12-02 12:39 | Emergency (ER) | payer OTHER ==
[~2021-12-02] VITALS: Ht 160 cm; Wt 81.3 kg
[~2021-12-02 12:39] MED LIST changes: +ACET-2619 PO; +HYOS-60 SL
[2021-12-02 12:44] VITALS: BP 121/79
--- NOTE | 2021-12-02 12:50 | NUR ---
PT AMB TO BED 9.
[2021-12-02] MEDS ORDERED: KETOROLAC 30 MG/ML VIAL IM ONE (13:15)
[2021-12-02] MEDS ORDERED: ACETAMINOPHEN EXTRA STRENGTH 500 MG TAB PO ONE (13:15)
--- NOTE | 2021-12-02 13:22 | NUR ---
31/F PRESENTS TO ED WITH C/O PELVIC PAIN X3 DAYS. PATIENT STATES HX OF OVARIAN CYSTS BUT STATES SHE NEVER RECEIVED TREATMENT. REPORTS TAKING IBUPROFEN THIS MORNING WITH TEMPORARY RELIEF, DENIES N/V/D OR URINARY SYMPTOMS. PATIENT REPORTS "PASSING BLOOD CLOTS." DENIES DIZZINESS OR WEAKNESS.
--- NOTE | 2021-12-02 14:50 | NUR ---
CRISTINE DICKERSON SENT TO LAB , HANDED TO BOLIVAR Addendum: 12/02/21 at 1452 by AARTI ANGEL LUIS ORTIZ SENT TO LAB. HANDED KRISTEN
--- NOTE | 2021-12-02 14:58 | NUR ---
Female Drawing In Machine Tender DAYRON MENDOZA accompanied ER/MD DR BASHIR FOR female patient for Pelvic Exam.
[2021-12-02 15:06] LABS: BILIRUBIN,URINE NEGATIVE (NEGATIVE); BLOOD, URINE TRACE-I (NEGATIVE); COLOR,URINE YELLOW (YELLOW); LEUKOCYTE ESTERASE ,URINE NEGATIVE (NEGATIVE); NITRITE, URINE NEGATIVE (NEGATIVE); UGLUCOSE NEGATIVE (NEGATIVE)
--- NOTE | 2021-12-02 15:06 | NUR ---
PT WAS GIVEN APPLE JUICE AND CRACKERS. PT IS AT REST
[2021-12-02 15:11] LABS: APPEARANCE,URINE CLOUDY (CLEAR)
[2021-12-02 15:18] LABS: RBC,URINE 0-5 /HPF (0-5); WBC,URINE NONE SEEN /HPF (0-5)
[2021-12-02 16:02] VITALS: BP 103/73
--- NOTE | 2021-12-02 16:10 | NUR ---
Patient discharged with v/s stable. Written and verbal after care instructions ABOUT PELVIC PAIN given and explained. Patient alert, oriented and verbalized understanding of instructions. Ambulatory with steady gait. All questions addressed prior to discharge. ID band removed. Patient advised to follow up with PMD. NO Rx given.Opportunity to ask questions provided and answered.
--- NOTE | 2021-12-02 16:14 | NUR ---
The patient's care was reviewed and supervised by Katy Mclean RN.
== END 2021-12-02 16:10 | disposition home or self-care (01) ==
LOC: MED 12:39
DX: R10.2 Pelvic and perineal pain (principal); R11.0 Nausea; J45.909 Unspecified asthma, uncomplicated; E11.9 Type 2 diabetes mellitus without complications; I10 Essential (primary) hypertension; Z88.1 Allergy status to other antibiotic agents
CPT/HCPCS: 76830; 81001; 81025; 87210; 99284; Q0092; J1885

== ENCOUNTER 2022-01-08 16:06 | Emergency (ER) | payer OTHER ==
[~2022-01-08] VITALS: Ht 160 cm; Wt 84.4 kg
[2022-01-08 16:51] VITALS: BP 103/70
--- NOTE | 2022-01-08 18:08 | NUR ---
P AMB TO ER BED 4
--- NOTE | 2022-01-08 18:37 | NUR ---
31/F PRESENTS TO ED WITH C/O N/V, INTERMITTENT FEVERS AND WEAKNESS. PATIENT STATES 2 WEEKS AGO SHE WAS DX WITH AN EAR INFECTION AND GIVEN AMOXICILLIN, PATIENT REPORTS IN THE LAST TWO DAYS SHE HAS BEEN FEELING INCREASINGLY MORE SICK. STATES "I'VE BEEN SEPTIC BEFORE AND I WANT TO MAKE SURE I'M NOT AGAIN." PATIENT REPORTS TAKING IBUPROFEN TODAY STATING EAR PAIN IS STILL PRESENT. VSS, PATIENT IN GOWN ON BEDSIDE MANAGER IMMUNOLOGY, WILL CONTINUE TO MONITOR.
--- NOTE | 2022-01-08 18:42 | NUR ---
LAB BEDSIDE FOR BLOOD DRAW
[2022-01-08 18:43] VITALS: BP 102/64
[2022-01-08 19:06] LABS: BASOPHILS % (AUTO) 0.3 % (0.0-2.0); EOSINOPHILS # (AUTO) 0.2 K/uL (0-0.4); EOSINOPHILS % (AUTO) 2.5 % (0.0-4.0); HEMOGLOBIN 13.3 g/dL (12.0-16.0); LYMPHOCYTES # (AUTO) 3.3 K/uL (2.5-16.5); LYMPHOCYTES % (AUTO) 36.7 % (20.5-51.1); MEAN CORPUSCULAR HEMOGLOBIN 33 pg (27-31); MEAN CORPUSCULAR HGB CONC 34 g/dL (33-37); MEAN CORPUSCULAR VOLUME 96.2 fL (80-94); MONOCYTES # (AUTO) 0.7 K/uL (0.8-1.0); MONOCYTES % (AUTO) 7.9 % (1.7-9.3); NEUTROPHILS # (AUTO) 4.8 K/uL (1.8-7.7); NEUTROPHILS % (AUTO) 52.6 % (42.2-75.2); PLATELET COUNT (AUTO) 283 K/uL (140-450); RED BLOOD CELL COUNT(AUTO) 4.05 MIL/uL (4.20-5.40); RED CELL DISTRIBUTION WIDTH 13.4 % (11.6-13.7); WHITE BLOOD COUNT (AUTO) 9.1 K/uL (4.8-10.8)
--- NOTE | 2022-01-08 19:07 | NUR ---
MUSICAL INSTRUMENT SUPERVISOR AT BEDSIDE
[2022-01-08 19:22] LABS: ALBUMIN 3.6 g/dL (3.4-5.0); ANION GAP 10.2 (8-16); CARBON DIOXIDE 26.1 mmol/L (21-32); CREATININE 0.8 mg/dL (0.6-1.3); POTASSIUM 4.3 mmol/L (3.5-5.1); TOTAL BILIRUBIN 0.3 mg/dL (0.0-1.0)
--- NOTE | 2022-01-08 19:23 | NUR ---
Pt report given to LAVONNE DOYLE. Transfer of care at this time.
[2022-01-08] MEDS ORDERED: AMOX1TAB8 PO (20:22)
--- NOTE | 2022-01-08 20:25 | NUR ---
The patient's care was reviewed and supervised by Tasha Gama RN.
--- NOTE | 2022-01-08 20:25 | NUR ---
Patient discharged , Patient in a hurry therefore no vs were obtained at this time. Written and verbal after care instructions given and explained. Patient alert, oriented and verbalized understanding of instructions. Ambulatory with steady gait. All questions addressed prior to discharge. ID band removed. Patient advised to follow up with PMD. Rx of Amoxicillin/Potassium Clav given.
== END 2022-01-08 20:25 | disposition home or self-care (01) ==
LOC: MED 16:06
DX: R50.9 Fever, unspecified (principal); H66.92 Otitis media, unspecified, left ear; R11.2 Nausea with vomiting, unspecified; J45.909 Unspecified asthma, uncomplicated; I10 Essential (primary) hypertension; E11.9 Type 2 diabetes mellitus without complications; Z79.2 Long term (current) use of antibiotics; Z79.899 Other long term (current) drug therapy; Z79.1 Long term (current) use of non-steroidal anti-inflammatories (NSAID); Z88.1 Allergy status to other antibiotic agents
CPT/HCPCS: 36415; 71045; 80053; 81002; 81025; 85025; 99284

== ENCOUNTER 2022-02-17 03:48 | Emergency (ER) | payer OTHER ==
[~2022-02-17] VITALS: Ht 160 cm; Wt 68.0 kg
[~2022-02-17 03:48] MED LIST changes: +AMOX1TAB8 PO
[2022-02-17 04:00] VITALS: BP 103/67
[2022-02-17 04:56] LABS: APPEARANCE,URINE CLEAR (CLEAR); BILIRUBIN,URINE NEGATIVE (NEGATIVE); BLOOD, URINE 2+ (NEGATIVE); COLOR,URINE YELLOW (YELLOW); LEUKOCYTE ESTERASE ,URINE NEGATIVE (NEGATIVE); NITRITE, URINE NEGATIVE (NEGATIVE); UGLUCOSE NEGATIVE (NEGATIVE)
--- NOTE | 2022-02-17 05:02 | NUR ---
called patient back for lab draw. no response from lobby, or front of ER, or parking lot.
--- NOTE | 2022-02-17 05:22 | NUR ---
called patient back, no response.
--- NOTE | 2022-02-17 05:40 | NUR ---
called patient;s phone number provided, no response. PATIENT LEFT WITHOUT BEING SEEN BY DR. Arredondo. NO FURTHER CARE PROVIDED FOR PATIENT.
[2022-02-17 06:46] LABS: CALCIUM OXALATE CRYSTALS,UR None Seen /HPF (None Seen); COARSE GRANULAR CASTS,URINE None Seen /LPF (None Seen); FINE GRANULAR CASTS,URINE None Seen /LPF (None Seen); HYALINE CASTS, URINE None Seen /LPF (None Seen); OTHER CASTS, URINE None Seen /LPF (None Seen); OTHER CRYSTALS,URINE None Seen /HPF (None Seen); RED BLOOD CELL CASTS,URINE None Seen /LPF (None Seen); TRICHOMONAS,URINE None Seen /HPF (None Seen); TRIPLE PHOSPHATE CRYSTAL,UR None Seen /HPF (None Seen); URIC ACID CRYSTALS,URINE None Seen /HPF (None Seen); URINE AMORPHOUS URATE None Seen /HPF (None Seen); WAXY CASTS,URINE None Seen /LPF (None Seen); WBC,URINE 0-5 /HPF (0-5); YEAST,URINE None Seen /HPF (None Seen)
== END 2022-02-17 05:02 | disposition left against medical advice (07) ==
LOC: MED 03:48
DX: R10.10 Upper abdominal pain, unspecified (principal); Z53.21 Procedure and treatment not carried out due to patient leaving prior to being seen by health care provider
CPT/HCPCS: 81001

== ENCOUNTER 2022-06-13 04:34 | Emergency (ER) | payer OTHER ==
[~2022-06-13] VITALS: Ht 160 cm; Wt 77.1 kg
[2022-06-13 04:35] VITALS: BP 121/56
--- NOTE | 2022-06-13 04:46 | NUR ---
PT TAKEN TO BED 3
--- NOTE | 2022-06-13 04:50 | NUR ---
ASSUME CARE OF PT, PT C/O BILATERAL FLANK PAIN, PT STATES SHE JUST COMPLETED ONE COURSE OF ANTIBIOTICS FOR UTI. PCP CALLED HER AND STARTED HER ON SECOND COURSE ANTIBIOTICS CIPRO FOR UTI. PT HX- KIDNEY STONES.
--- NOTE | 2022-06-13 05:04 | NUR ---
Dr. Ta examining patient.
[2022-06-13] MEDS ORDERED: ONDANSETRON 4 MG ODT PO ONE (05:10)
[2022-06-13] MEDS ORDERED: KETOROLAC 60 MG/2 ML VIAL IM ONE (05:10)
[2022-06-13 05:13] LABS: APPEARANCE,URINE SL CLOUDY (CLEAR); BILIRUBIN,URINE NEGATIVE (NEGATIVE); BLOOD, URINE 2+ (NEGATIVE); COLOR,URINE YELLOW (YELLOW); LEUKOCYTE ESTERASE ,URINE 3+ (NEGATIVE); NITRITE, URINE POSITIVE (NEGATIVE); UGLUCOSE NEGATIVE (NEGATIVE)
[2022-06-13] MEDS ORDERED: ONDANSETRON 4 MG/2 ML VIAL IVP ONE (05:15)
[2022-06-13] MEDS ORDERED: KETOROLAC 30 MG/ML VIAL IVP ONE (05:15)
[2022-06-13] MEDS ORDERED: NACL 0.9% 1,000 ML IV SCH (05:15)
[2022-06-13] MEDS ORDERED: SULF-59 PO (05:20)
[2022-06-13 06:01] LABS: BASOPHILS % (AUTO) 0.4 % (0.0-2.0); EOSINOPHILS # (AUTO) 0.1 K/uL (0-0.4); EOSINOPHILS % (AUTO) 0.8 % (0.0-4.0); HEMATOCRIT 37.9 % (36-48); HEMOGLOBIN 12.9 g/dL (12.0-16.0); LYMPHOCYTES # (AUTO) 1.7 K/uL (2.5-16.5); LYMPHOCYTES % (AUTO) 17.5 % (20.5-51.1); MEAN CORPUSCULAR HEMOGLOBIN 33 pg (27-31); MEAN CORPUSCULAR HGB CONC 34 g/dL (33-37); MEAN CORPUSCULAR VOLUME 97.8 fL (80-94); MONOCYTES # (AUTO) 0.7 K/uL (0.8-1.0); MONOCYTES % (AUTO) 6.7 % (1.7-9.3); NEUTROPHILS # (AUTO) 7.3 K/uL (1.8-7.7); NEUTROPHILS % (AUTO) 74.6 % (42.2-75.2); PLATELET COUNT (AUTO) 271 K/uL (140-450); RED BLOOD CELL COUNT(AUTO) 3.88 MIL/uL (4.20-5.40); RED CELL DISTRIBUTION WIDTH 13.5 % (11.6-13.7); WHITE BLOOD COUNT (AUTO) 9.8 K/uL (4.8-10.8)
[2022-06-13 06:19] LABS: ALBUMIN 3.2 g/dL (3.4-5.0); ANION GAP 13.2 (8-16); CREATININE 0.8 mg/dL (0.6-1.3); POTASSIUM 4.2 mmol/L (3.5-5.1); TOTAL BILIRUBIN 0.4 mg/dL (0.0-1.0)
--- NOTE | 2022-06-13 06:30 | NUR ---
PT RESTING IN BED, PAIN HAS REDUCE, WAITING FOR SCAN RESULTS.
--- NOTE | 2022-06-13 07:18 | NUR ---
REPORT GIVEN TO JARETT PADGETT
--- NOTE | 2022-06-13 07:21 | NUR ---
PT A/O TIMES 4, NAD, FLANK PAIN NOW 11/30, NO NAUSEA OR VOMITING, NO F/C, O2 SAT 99% RA, SR UP TIMES 2, AWAITS DISPO. PENDING CT RESULTS
[2022-06-13 08:17] VITALS: BP 106/72
--- NOTE | 2022-06-13 08:20 | NUR ---
Patient discharged with v/s stable. Written and verbal after care instructions given and explained. Patient verbalized understanding. Ambulatory with steady gait. All questions addressed prior to discharge. Advised to follow up with PMD. FLANK PAIN 10/02
[2022-06-13 08:53] LABS: WBC,URINE 20-60 /HPF (0-5)
== END 2022-06-13 08:20 | disposition home or self-care (01) ==
LOC: MED 04:34
DX: N39.0 Urinary tract infection, site not specified (principal); J45.909 Unspecified asthma, uncomplicated; I10 Essential (primary) hypertension; E11.9 Type 2 diabetes mellitus without complications; Z98.890 Other specified postprocedural states; Z79.2 Long term (current) use of antibiotics; Z79.899 Other long term (current) drug therapy; Z79.1 Long term (current) use of non-steroidal anti-inflammatories (NSAID); Z79.891 Long term (current) use of opiate analgesic
CPT/HCPCS: 36415; 74176; 80053; 81001; 81025; 83690; 85025; 87086; 96361; 96374; 96375; 99284; J1885; J2405; J7030

== ENCOUNTER 2023-04-01 12:23 | Emergency (ER) | payer OTHER ==
[~2023-04-01] VITALS: Ht 160 cm; Wt 81.6 kg
[2023-04-01 12:31] VITALS: BP 110/80; PULSE 80; RESP 20; TEMP 97.6; O2SAT 98
[2023-04-01] MEDS ORDERED: ONDANSETRON 4 MG/2 ML VIAL IVP ONE (13:15)
[2023-04-01] MEDS ORDERED: NACL 0.9% 1,000 ML IV ONE (13:15)
[2023-04-01] MEDS ORDERED: KETOROLAC 30 MG/ML VIAL IVP ONE ×2 (13:15→15:35)
[2023-04-01 13:43] LABS: BASOPHILS % (AUTO) 0.3 % (0.0-2.0); EOSINOPHILS % (AUTO) 0.2 % (0.0-4.0); HEMATOCRIT 41.8 % (36-48); HEMOGLOBIN 14.1 g/dL (12.0-16.0); LYMPHOCYTES # (AUTO) 2.2 K/uL (2.5-16.5); LYMPHOCYTES % (AUTO) 27.3 % (20.5-51.1); MEAN CORPUSCULAR HEMOGLOBIN 33 pg (27-31); MEAN CORPUSCULAR HGB CONC 34 g/dL (33-37); MEAN CORPUSCULAR VOLUME 97.3 fL (80-94); MONOCYTES # (AUTO) 0.5 K/uL (0.8-1.0); MONOCYTES % (AUTO) 5.6 % (1.7-9.3); NEUTROPHILS # (AUTO) 5.4 K/uL (1.8-7.7); NEUTROPHILS % (AUTO) 66.6 % (42.2-75.2); PLATELET COUNT (AUTO) 289 K/uL (140-450); RED CELL DISTRIBUTION WIDTH 13.7 % (11.6-13.7); WHITE BLOOD COUNT (AUTO) 8.1 K/uL (4.8-10.8)
[2023-04-01 14:11] LABS: ALBUMIN 4.1 g/dL (3.4-5.0); ANION GAP 12.3 (8-16); CALCIUM 9.9 mg/dL (8.5-10.1); CARBON DIOXIDE 30.5 mmol/L (21-32); CREATININE 0.8 mg/dL (0.6-1.3); POTASSIUM 3.8 mmol/L (3.5-5.1); TOTAL BILIRUBIN 0.5 mg/dL (0.0-1.0); TOTAL PROTEIN, SERUM 8.5 g/dL (6.4-8.2)
[2023-04-01 14:23] LABS: APPEARANCE,URINE CLEAR (CLEAR); BILIRUBIN,URINE NEGATIVE (NEGATIVE); BLOOD, URINE 3+ (NEGATIVE); COLOR,URINE YELLOW (YELLOW); LEUKOCYTE ESTERASE ,URINE NEGATIVE (NEGATIVE); NITRITE, URINE NEGATIVE (NEGATIVE); PROTEIN,URINE NEGATIVE (NEGATIVE); UGLUCOSE NEGATIVE (NEGATIVE); UROBILINOGEN,URINE 0.2 EU/dL (0.2 - 1)
[2023-04-01] MEDS ORDERED: KETOROLAC 30 MG/ML VIAL ONE (14:37)
[2023-04-01] MEDS ORDERED: ONDANSETRON 4 MG/2 ML VIAL ONE (14:37)
[2023-04-01 14:38] LABS: BACTERIA,URINE FEW /HPF (None Seen); SQUAMOUS EPITHELIAL CELL,UR 0-3 (FEW) /LPF (0-3 (FEW)); WBC,URINE 0-5 /HPF (0-5)
[2023-04-01] MEDS ORDERED: MORPHINE SULFATE 4 MG/ML SYR IVP ONE (15:50)
[2023-04-01] MEDS ORDERED: LID5T TP (16:31)
[2023-04-01] MEDS ORDERED: CYCL-711 PO (16:31)
[2023-04-01 16:52] VITALS: PULSE 78
[2023-04-01 16:56] VITALS: BP 106/65; RESP 18; TEMP 97.1; O2SAT 99
== END 2023-04-01 17:03 | disposition home or self-care (01) ==
LOC: MED 12:23
DX: M54.9 Dorsalgia, unspecified (principal); R10.9 Unspecified abdominal pain; R11.2 Nausea with vomiting, unspecified; J45.909 Unspecified asthma, uncomplicated; I10 Essential (primary) hypertension; Z87.442 Personal history of urinary calculi; Z98.890 Other specified postprocedural states
CPT/HCPCS: 36415; 74176; 80053; 81001; 81025; 83690; 85025; 96361; 96374; 96375; 99285; J1885; J2270; J2405; J7030

== ENCOUNTER 2023-07-29 04:40 | Emergency (ER) | payer OTHER ==
[~2023-07-29] VITALS: Ht 160 cm; Wt 77.6 kg
[~2023-07-29 04:40] MED LIST changes: +CYCL-711 PO; +LID5T TP
[2023-07-29 04:46] VITALS: BP 92/65; PULSE 102; RESP 16; TEMP 97.6; O2SAT 100
[2023-07-29 05:09] VITALS: O2SAT 100
[2023-07-29] MEDS ORDERED: ONDANSETRON 4 MG/2 ML VIAL IVP ONE (05:20)
[2023-07-29] MEDS ORDERED: MORPHINE SULFATE 4 MG/ML SYR IVP ONE ×2 (05:20→06:00)
[2023-07-29] MEDS ORDERED: NACL 0.9% 1,000 ML IV ONE (05:20)
[2023-07-29] MEDS ORDERED: KETOROLAC 30 MG/ML VIAL IVP ONE (06:00)
[2023-07-29] MEDS ORDERED: diphenhydrAMINE 50 MG/ML VIAL IVP ONE (06:15)
[2023-07-29] MEDS ORDERED: METOCLOPRAMIDE 10 MG/2 ML INJ VIAL IVP ONE (06:15)
[2023-07-29] MEDS ORDERED: DEXAMETHASONE 4 MG/ML VIAL IVP ONE (06:35)
[2023-07-29] MEDS ORDERED: ACET-9496 PO (06:56)
[2023-07-29 07:30] LABS: FLU A ANTIGEN negative (NEGATIVE); FLU B ANTIGEN NEGATIVE (NEGATIVE)
== END 2023-07-29 07:00 | disposition home or self-care (01) ==
LOC: MED 04:40
DX: G43.909 Migraine, unspecified, not intractable, without status migrainosus (principal); R11.2 Nausea with vomiting, unspecified; Z20.822 Contact with and (suspected) exposure to COVID-19; J45.909 Unspecified asthma, uncomplicated; E11.9 Type 2 diabetes mellitus without complications; I10 Essential (primary) hypertension; F41.9 Anxiety disorder, unspecified; Z79.899 Other long term (current) drug therapy; Z79.2 Long term (current) use of antibiotics; Z79.01 Long term (current) use of anticoagulants
CPT/HCPCS: 81025; 87426; 87804; 96361; 96374; 96375; 96376; 99284; J1100; J1200; J2270; J2405; J2765; J7030

== ENCOUNTER 2023-08-09 01:05 | Emergency (ER) | payer OTHER ==
[~2023-08-09] VITALS: Ht 160 cm; Wt 77.1 kg
[~2023-08-09 01:05] MED LIST changes: +ACET-9496 PO
[2023-08-09 01:11] VITALS: BP 113/84; PULSE 80; RESP 20; TEMP 98; O2SAT 98
[2023-08-09 02:40] VITALS: O2SAT 98
[2023-08-09] MEDS ORDERED: METO-485 PO (02:48)
[2023-08-09] MEDS ORDERED: NAPR-54 PO (02:48)
[2023-08-09] MEDS ORDERED: ACET-10509 PO (02:48)
[2023-08-09] MEDS: METOCLOPRAMIDE 10 MG/2 ML INJ VIAL IVP ONE (02:53)
[2023-08-09] MEDS: diphenhydrAMINE 50 MG/ML VIAL IVP ONE (02:53)
[2023-08-09] MEDS: MORPHINE SULFATE 4 MG/ML SYR IVP ONE (02:54)
[2023-08-09] MEDS: NACL 0.9% 1,000 ML IV ONE (02:56)
[2023-08-09] MEDS: KETOROLAC 30 MG/ML VIAL IVP ONE (02:56)
== END 2023-08-09 04:00 | disposition home or self-care (01) ==
LOC: MED 01:05
DX: S09.90XA Unspecified injury of head, initial encounter (principal); R11.2 Nausea with vomiting, unspecified; J45.909 Unspecified asthma, uncomplicated; I10 Essential (primary) hypertension; Z79.899 Other long term (current) drug therapy; W18.30XA Fall on same level, unspecified, initial encounter; Y93.89 Activity, other specified; Y92.89 Other specified places as the place of occurrence of the external cause; Y99.8 Other external cause status
CPT/HCPCS: 81025; 96361; 96374; 96375; 99284; J1200; J1885; J2270; J2765

== ENCOUNTER 2023-08-09 23:33 | Emergency (ER) | payer OTHER ==
[~2023-08-09 23:33] MED LIST changes: +ACET-10509 PO; +METO-485 PO; +NAPR-54 PO
== END 2023-08-09 23:42 | disposition left against medical advice (07) ==
LOC: MED 23:33
DX: Z00.8 Encounter for other general examination (principal); Z53.21 Procedure and treatment not carried out due to patient leaving prior to being seen by health care provider

== ENCOUNTER 2023-09-19 23:38 | Emergency (ER) | payer OTHER ==
[~2023-09-19] VITALS: Ht 162.6 cm; Wt 72.1 kg
[2023-09-19 23:50] VITALS: BP 111/78; PULSE 101; RESP 18; TEMP 97.9; O2SAT 98
[2023-09-20] MEDS ORDERED: NACL 0.9% 1,000 ML IV ONE (00:50)
[2023-09-20 01:02] LABS: APPEARANCE,URINE CLEAR (CLEAR); BILIRUBIN,URINE 1+ (NEGATIVE); BLOOD, URINE 2+ (NEGATIVE); COLOR,URINE YELLOW (YELLOW); LEUKOCYTE ESTERASE ,URINE 2+ (NEGATIVE); NITRITE, URINE NEGATIVE (NEGATIVE); PROTEIN,URINE NEGATIVE (NEGATIVE); UGLUCOSE NEGATIVE (NEGATIVE); UROBILINOGEN,URINE 0.2 EU/dL (0.2 - 1)
[2023-09-20 01:10] LABS: BACTERIA,URINE 10-30 (MOD) /HPF (None Seen); ICTOTEST POSITIVE (NEGATIVE); MUCUS,URINE 1+ /LPF (None Seen); SQUAMOUS EPITHELIAL CELL,UR 4-10 (MOD) /LPF (0-3 (FEW))
[2023-09-20] MEDS ORDERED: ONDANSETRON 4 MG/2 ML VIAL IVP ONE (01:10)
[2023-09-20 01:12] LABS: BASOPHILS # (AUTO) 0.1 K/uL (0.00-0.22); BASOPHILS % (AUTO) 0.7 % (0.0-2.0); EOSINOPHILS % (AUTO) 0.2 % (0.0-4.0); HEMATOCRIT 38.5 % (36-48); HEMOGLOBIN 13.3 g/dL (12.0-16.0); LYMPHOCYTES # (AUTO) 2.8 K/uL (2.5-16.5); LYMPHOCYTES % (AUTO) 37.4 % (20.5-51.1); MEAN CORPUSCULAR HEMOGLOBIN 34 pg (27-31); MEAN CORPUSCULAR HGB CONC 35 g/dL (33-37); MEAN CORPUSCULAR VOLUME 97.3 fL (80-94); MONOCYTES # (AUTO) 0.6 K/uL (0.8-1.0); MONOCYTES % (AUTO) 8.5 % (1.7-9.3); NEUTROPHILS % (AUTO) 53.2 % (42.2-75.2); PLATELET COUNT (AUTO) 260 K/uL (140-450); RED BLOOD CELL COUNT(AUTO) 3.96 MIL/uL (4.20-5.40); RED CELL DISTRIBUTION WIDTH 13.1 % (11.6-13.7); WHITE BLOOD COUNT (AUTO) 7.6 K/uL (4.8-10.8)
[2023-09-20] MEDS ORDERED: METOCLOPRAMIDE 10 MG/2 ML INJ VIAL IVP ONE (01:15)
[2023-09-20] MEDS ORDERED: MORPHINE SULFATE 4 MG/ML SYR IVP ONE (01:25)
[2023-09-20 01:28] LABS: ANION GAP 11.4 (8-16); CARBON DIOXIDE 28.2 mmol/L (21-32); CREATININE 0.8 mg/dL (0.6-1.3); POTASSIUM 3.6 mmol/L (3.5-5.1)
[2023-09-20 01:32] LABS: ALBUMIN 3.9 g/dL (3.4-5.0); BILIRUBIN,DIRECT 0.1 mg/dL (0.0-0.3); TOTAL BILIRUBIN 0.5 mg/dL (0.0-1.0); TOTAL PROTEIN, SERUM 8.8 g/dL (6.4-8.2)
[2023-09-20] MEDS ORDERED: LEVOFLOXACIN 500 MG/D5W PREMIX 100 ML IV ONE (01:45)
[2023-09-20] MEDS ORDERED: cefTRIAXone 1,000 MG VIAL ONE (01:57)
[2023-09-20] MEDS ORDERED: TRAM50TA3 PO (02:00)
[2023-09-20] MEDS ORDERED: CIPR500T4 PO (02:00)
[2023-09-22] MEDS ORDERED: SULF-59 PO (18:06)
== END 2023-09-20 02:30 | disposition home or self-care (01) ==
LOC: MED 23:38
DX: N10 Acute pyelonephritis (principal); J45.909 Unspecified asthma, uncomplicated; E11.9 Type 2 diabetes mellitus without complications; I10 Essential (primary) hypertension; Z79.899 Other long term (current) drug therapy; Z79.1 Long term (current) use of non-steroidal anti-inflammatories (NSAID); Z79.2 Long term (current) use of antibiotics
CPT/HCPCS: 36415; 76770; 80048; 80076; 81001; 85025; 87086; 96361; 96365; 96375; 99285; J0696; J2270; J2765; J7030; Q0092; J2405

== ENCOUNTER 2023-09-23 17:18 | Emergency (ER) | payer OTHER ==
[~2023-09-23] VITALS: Ht 160 cm; Wt 71.2 kg
[~2023-09-23 17:18] MED LIST changes: +CIPR500T4 PO; +TRAM50TA3 PO
[2023-09-23 17:22] VITALS: BP 135/77; PULSE 87; RESP 19; TEMP 97.8; O2SAT 98
[2023-09-23] MEDS ORDERED: ONDANSETRON 4 MG/2 ML VIAL IVP ONE (18:05)
[2023-09-23] MEDS ORDERED: MORPHINE SULFATE 4 MG/ML SYR IVP ONE ×2 (18:05→20:00)
[2023-09-23] MEDS ORDERED: NACL 0.9% 1,000 ML IV ONE (18:05)
[2023-09-23 18:47] LABS: BASOPHILS % (AUTO) 0.3 % (0.0-2.0); EOSINOPHILS % (AUTO) 0.6 % (0.0-4.0); HEMATOCRIT 38.4 % (36-48); HEMOGLOBIN 13.1 g/dL (12.0-16.0); LYMPHOCYTES # (AUTO) 2.3 K/uL (2.5-16.5); LYMPHOCYTES % (AUTO) 46.6 % (20.5-51.1); MEAN CORPUSCULAR HEMOGLOBIN 33 pg (27-31); MEAN CORPUSCULAR HGB CONC 34 g/dL (33-37); MONOCYTES # (AUTO) 0.3 K/uL (0.8-1.0); NEUTROPHILS # (AUTO) 2.3 K/uL (1.8-7.7); NEUTROPHILS % (AUTO) 46.5 % (42.2-75.2); PLATELET COUNT (AUTO) 222 K/uL (140-450); RED BLOOD CELL COUNT(AUTO) 3.96 MIL/uL (4.20-5.40); RED CELL DISTRIBUTION WIDTH 12.6 % (11.6-13.7); WHITE BLOOD COUNT (AUTO) 4.9 K/uL (4.8-10.8)
[2023-09-23 19:14] LABS: LACTIC ACID 1.3 mmol/L (0.4-2.0)
[2023-09-23 19:18] LABS: ANION GAP 10.9 (8-16); CALCIUM 8.9 mg/dL (8.5-10.1); CARBON DIOXIDE 29.5 mmol/L (21-32); CREATININE 0.8 mg/dL (0.6-1.3); POTASSIUM 3.4 mmol/L (3.5-5.1)
[2023-09-23 19:21] LABS: ALBUMIN 3.8 g/dL (3.4-5.0); BILIRUBIN,DIRECT 0.1 mg/dL (0.0-0.3); TOTAL BILIRUBIN 0.3 mg/dL (0.0-1.0); TOTAL PROTEIN, SERUM 8.6 g/dL (6.4-8.2)
[2023-09-23 19:27] LABS: APPEARANCE,URINE CLEAR (CLEAR); COLOR,URINE AMBER (YELLOW)
[2023-09-23 19:28] LABS: BILIRUBIN,URINE NEGATIVE (NEGATIVE); BLOOD, URINE TRACE (NEGATIVE); NITRITE, URINE NEGATIVE (NEGATIVE); PROTEIN,URINE NEGATIVE (NEGATIVE); UGLUCOSE NEGATIVE (NEGATIVE); UROBILINOGEN,URINE 0.2 EU/dL (0.2 - 1)
[2023-09-23 19:29] LABS: LEUKOCYTE ESTERASE ,URINE NEGATIVE (NEGATIVE)
[2023-09-23] MEDS ORDERED: ONDA-188 SL ×2 (19:59→20:02)
[2023-09-23] MEDS ORDERED: HYDR-5191 PO ×2 (19:59→20:01)
[2023-09-23 20:55] VITALS: BP 120/74; PULSE 78; RESP 19; TEMP 97.8; O2SAT 98
== END 2023-09-23 20:55 | disposition home or self-care (01) ==
LOC: MED 17:18
DX: N39.0 Urinary tract infection, site not specified (principal); J45.909 Unspecified asthma, uncomplicated; E11.9 Type 2 diabetes mellitus without complications; I10 Essential (primary) hypertension; Z79.899 Other long term (current) drug therapy; Z79.2 Long term (current) use of antibiotics; Z79.1 Long term (current) use of non-steroidal anti-inflammatories (NSAID)
CPT/HCPCS: 36415; 74176; 80048; 80076; 81003; 81025; 83605; 83690; 84703; 85025; 87040; 96361; 96374; 96375; 96376; 99285; J2270; J2405; J7030

== ENCOUNTER 2023-10-04 09:30 | Emergency (ER) | payer OTHER ==
[~2023-10-04] VITALS: Ht 160 cm; Wt 69.4 kg
[~2023-10-04 09:30] MED LIST changes: +HYDR-5191 PO; +ONDA-188 SL
[2023-10-04 09:38] VITALS: BP 114/67; PULSE 92; RESP 16; TEMP 98; O2SAT 99
[2023-10-04] MEDS ORDERED: LORazepam 2 MG/ML VIAL ONE (11:05)
[2023-10-04] MEDS: NACL 0.9% 1,000 ML IV ONE (11:13)
[2023-10-04] MEDS: ONDANSETRON 4 MG/2 ML VIAL IVP ONE (11:14)
[2023-10-04 11:19] VITALS: BP 119/65; PULSE 84; RESP 16; TEMP 98; O2SAT 99
[2023-10-04] MEDS: LORazepam 2 MG/ML VIAL IVP ONE (11:21)
[2023-10-04 11:44] LABS: BILIRUBIN,URINE NEGATIVE (NEGATIVE); BLOOD, URINE 1+ (NEGATIVE); COLOR,URINE YELLOW (YELLOW); LEUKOCYTE ESTERASE ,URINE NEGATIVE (NEGATIVE); NITRITE, URINE NEGATIVE (NEGATIVE); PROTEIN,URINE NEGATIVE (NEGATIVE); UGLUCOSE NEGATIVE (NEGATIVE); UROBILINOGEN,URINE 0.2 EU/dL (0.2 - 1)
[2023-10-04 11:45] LABS: APPEARANCE,URINE SLIGHTLY CLOUDY (CLEAR)
[2023-10-04 11:52] LABS: BARBITURATE, URINE NEGATIVE ng/ml (NEG <=200)
[2023-10-04 11:53] LABS: AMPHETAMINE, URINE NEGATIVE ng/ml (NEG <=1000); BENZODIAZEPINE, URINE POSITIVE ng/mL (NEG <=200); CANNABINOID, URINE POSITIVE ng/mL (NEG <=50); COCAINE, URINE NEGATIVE ng/mL (NEG <=300); OPIATE, URINE POSITIVE ng/mL (NEG <=2000); PHENCYCLIDINE SCREEN,URINE NEGATIVE ng/mL (NEG <=25)
[2023-10-04 12:04] LABS: ANION GAP 15.9 (8-16); CALCIUM 9.3 mg/dL (8.5-10.1); CARBON DIOXIDE 25.6 mmol/L (21-32); CREATININE 0.7 mg/dL (0.6-1.3); POTASSIUM 3.5 mmol/L (3.5-5.1)
[2023-10-04 12:46] LABS: FREE T4 (FREE THYROXINE) 0.85 ng/dL (0.76-1.46); THYROID STIMULATING HORMONE 0.89 uIU/mL (0.34-3.74)
== END 2023-10-04 13:17 | disposition home or self-care (01) ==
LOC: MED 09:30
DX: F41.9 Anxiety disorder, unspecified (principal); R11.0 Nausea; J45.909 Unspecified asthma, uncomplicated; I10 Essential (primary) hypertension; Z79.899 Other long term (current) drug therapy
CPT/HCPCS: 36415; 80048; 80305; 81003; 81025; 84439; 84443; 96361; 96374; 96375; 99284; J2060; J2405; J7030

== ENCOUNTER 2023-10-21 02:35 | Emergency (ER) | payer OTHER ==
[~2023-10-21] VITALS: Ht 160 cm; Wt 68.9 kg
[2023-10-21 02:40] VITALS: BP 126/76; PULSE 106; RESP 17; TEMP 97.8; O2SAT 97
[2023-10-21 03:29] LABS: APPEARANCE,URINE CLEAR (CLEAR); BILIRUBIN,URINE NEGATIVE (NEGATIVE); BLOOD, URINE 1+ (NEGATIVE); COLOR,URINE YELLOW (YELLOW); LEUKOCYTE ESTERASE ,URINE 2+ (NEGATIVE); NITRITE, URINE POSITIVE (NEGATIVE); PH,URINE 6.5 (5.0-9.0); PROTEIN,URINE TRACE (NEGATIVE); UGLUCOSE TRACE (NEGATIVE)
[2023-10-21 03:35] LABS: BACTERIA,URINE 10-30 (MOD) /HPF (None Seen); MUCUS,URINE 1+ /LPF (None Seen); SQUAMOUS EPITHELIAL CELL,UR 0-3 (FEW) /LPF (0-3 (FEW))
== END 2023-10-21 03:17 | disposition left against medical advice (07) ==
LOC: MED 02:35
DX: N39.0 Urinary tract infection, site not specified (principal); J45.909 Unspecified asthma, uncomplicated; I10 Essential (primary) hypertension; E11.9 Type 2 diabetes mellitus without complications; Z79.899 Other long term (current) drug therapy
CPT/HCPCS: 81001; 87086; 99283